=== PATIENT | female | born 1985 | race Caucasian/White ===

== ENCOUNTER 2018-04-08 20:20 | Emergency (ER) | payer OTHER ==
[~2018-04-08] VITALS: Ht 160 cm; Wt 50.0 kg
[2018-04-08 21:55] LABS: HEMATOCRIT 29.3 % (36.0-46.0); HEMOGLOBIN 9.2 G/DL (11.9-15.5); MCH 22.4 PG (29.0-34.0); MCHC 31.4 G/DL (30.0-36.0); MCV 71.5 FL (83-99); PLATELET COUNT 275 K/uL (156-360); RBC DIS.WIDTH-CV 15.4 % (11.8-14.6); RBC DIS.WIDTH-SD 39.4 % (39-53); WHITE BLOOD COUNT 7.5 K/uL (4.1-10.2)
[2018-04-08 21:58] LABS: CHLORIDE 104 mEq/L (99-109); POTASSIUM 3.5 mEq/L (3.7-5.4); SODIUM 136 mEq/L (136-147)
[2018-04-08 21:59] LABS: GLUCOSE 138 mg/dL (70-99)
[2018-04-08 22:03] LABS: CREATININE 0.7 mg/dL (0.6-1.3); GFR ESTIMATE (CALCULATED) > 59 mL/min/
[2018-04-08 22:04] LABS: UREA NITROGEN (BUN) 10 mg/dL (9-23)
[2018-04-08 22:12] LABS: QUANTITATIVE HCG < 4.0 MIU/ML
[2018-04-09 01:14] VITALS: BP 105/72
== END 2018-04-09 01:15 | disposition home or self-care (01) ==
LOC: EME 20:20
DX: S09.90XA Unspecified injury of head, initial encounter (principal); W22.09XA Striking against other stationary object, initial encounter; Y99.0 Civilian activity done for income or pay; R50.9 Fever, unspecified; D64.9 Anemia, unspecified; F17.200 Nicotine dependence, unspecified, uncomplicated
CPT/HCPCS: 70450; 71046; 80048; 81003; 84702; 85027; 99281; 99285; J1885; J7030

== ENCOUNTER 2018-04-15 13:31 | Inpatient (IN) | payer OTHER ==
[~2018-04-15] VITALS: Ht 160 cm; Wt 49.3 kg
[2018-04-15] MEDS ORDERED: GABAPENTIN300 MG PO (14:17)
[2018-04-15] MEDS ORDERED: SUBOXONE 8 MG-1 EAC2 SL (14:18)
[2018-04-15 14:58] LABS: BASOPHIL (%) 0.5 % (0-1); EOSINOPHIL (%) 0.1 % (0-5); HEMATOCRIT 30.8 % (36.0-46.0); HEMOGLOBIN 9.5 G/DL (11.9-15.5); IMMATURE GRANULOCYTE (%) 0.5 % (0.0-0.7); LYMPHOCYTE (%) 9.9 % (15-42); LYMPHOCYTE COUNT 0.7 K/uL (1.0-2.8); MCHC 30.8 G/DL (30.0-36.0); MCV 71.5 FL (83-99); MONOCYTE (%) 7.9 % (3-12); MONOCYTE COUNT 0.6 K/uL (0-0.8); NEUTROPHIL (%) 81.1 % (45-76); NEUTROPHIL COUNT 6.1 K/uL (1.8-6.4); PLATELET COUNT 269 K/uL (156-360); RBC DIS.WIDTH-CV 15.2 % (11.8-14.6); RBC DIS.WIDTH-SD 39.6 % (39-53); RED BLOOD COUNT 4.31 M/uL (3.80-5.20); WHITE BLOOD COUNT 7.5 K/uL (4.1-10.2)
[2018-04-15 15:00] LABS: ALBUMIN 3.8 g/dL (3.2-4.8)
[2018-04-15 15:01] LABS: CHLORIDE 103 mEq/L (99-109); POTASSIUM 3.9 mEq/L (3.7-5.4); SODIUM 138 mEq/L (136-147)
[2018-04-15 15:03] LABS: GLUCOSE 173 mg/dL (70-99); TOTAL PROTEIN 7.7 g/dL (6.4-8.3)
[2018-04-15 15:05] LABS: TOTAL BILIRUBIN 0.3 mg/dL (0.0-1.0)
[2018-04-15 15:07] LABS: ALKALINE PHOSPHATASE 118 IU/L (3-129); CREATININE 0.8 mg/dL (0.6-1.3); GFR ESTIMATE (CALCULATED) > 59 mL/min/
[2018-04-15 15:08] LABS: AST (GOT) 19 IU/L (2-34); UREA NITROGEN (BUN) 9 mg/dL (9-23)
[2018-04-15 15:09] LABS: ALT (GPT) 22 IU/L (3-49)
[2018-04-15 15:23] LABS: LIPASE 9 U/L (1.0-51.0)
[2018-04-15 16:36] LABS: APPEARANCE CLEAR ((CLEAR)); BILIRUBIN NEGATIVE; BLOOD NEGATIVE; COLOR STRAW ((YELLOW)); GLUCOSE (STRIP) NEGATIVE; KETONES NEGATIVE; LEUKOCYTES NEGATIVE; NITRITE NEGATIVE; PROTEIN (STRIP) NEGATIVE; SPECIFIC GRAVITY 1.003 (1.000-1.030); UCUL ADDED? NO; UROBILINOGEN 0.2 MG/DL (0.2-1.0)
[2018-04-15] MEDS ORDERED: ZUBSOLV 5.7-1.1 EACH SL (17:41)
[2018-04-15] MEDS ORDERED: SEROQUEL12.5 MG PO (17:43)
[2018-04-15] MEDS ORDERED: ENSURE113 GM PO (17:44)
[2018-04-15 17:59] VITALS: BP 126/65
[2018-04-15 20:16] VITALS: BP 103/57
[2018-04-16 00:05] VITALS: BP 118/72
[2018-04-16 03:56] VITALS: BP 95/48
[2018-04-16 06:57] LABS: HEMATOCRIT 27.2 % (36.0-46.0); HEMOGLOBIN 8.3 G/DL (11.9-15.5); MCH 21.8 PG (29.0-34.0); MCHC 30.5 G/DL (30.0-36.0); MCV 71.6 FL (83-99); PLATELET COUNT 218 K/uL (156-360); RBC DIS.WIDTH-CV 15.3 % (11.8-14.6); RBC DIS.WIDTH-SD 39.7 % (39-53); WHITE BLOOD COUNT 5.8 K/uL (4.1-10.2)
[2018-04-16 07:01] LABS: CHLORIDE 110 MEQ/L (99-109); CREATININE 0.5 MG/DL (0.6-1.3); GFR ESTIMATE (CALCULATED) > 59 mL/min/; GLUCOSE 121 mg/dL (70-99); POTASSIUM 4.2 MEQ/L (3.7-5.4); SODIUM 141 MEQ/L (136-147); UREA NITROGEN (BUN) 7 mg/dL (9-23)
[2018-04-16 07:16] LABS: ABS NEUTROPHIL COUNT 2.8; ANISOCYTOSIS 2+; BASOPHILS 2.7 %; BURR CELLS 2+; EOSINOPHIL ABS CT 0.2; EOSINOPHILS 2.6 % (0-5.0); HYPOCHROMASIA 1+; MICROCYTOSIS 2+; MYELOCYTES 0.9 %; OVALOCYTES 2+; PLAT.SUFFICIENCY ADEQUATE; POIKILOCYTOSIS 3+; SEG.NEUTROPHILS 47.8 % (46.0-76.0)
[2018-04-16 07:28] VITALS: BP 99/64
[2018-04-16 11:53] VITALS: BP 106/65
[2018-04-16 16:21] VITALS: BP 117/78
[2018-04-16 19:13] VITALS: BP 117/69
[2018-04-17 00:07] VITALS: BP 102/56
[2018-04-17 08:23] VITALS: BP 104/69
[2018-04-17] MEDS ORDERED: CIPRO500 MG PO (16:48)
== END 2018-04-17 18:18 | disposition home or self-care (01) | DRG 872 ==
LOC: EME 13:31 → EDOF 15:00 → CANRESERV 15:04 → ENRESERV 15:04 → 5SOUTH 17:52
PROVIDERS: Emergency Medicine; Nurse Practitioner Adult Health
DX: A41.52 Sepsis due to Pseudomonas (principal); F11.20 Opioid dependence, uncomplicated; D50.9 Iron deficiency anemia, unspecified; N92.0 Excessive and frequent menstruation with regular cycle; F17.210 Nicotine dependence, cigarettes, uncomplicated; Z71.51 Drug abuse counseling and surveillance of drug abuser
CPT/HCPCS: 36415; 71046; 74177; 80048; 80053; 80074; 80306 90; 81003; 82728; 83540; 83605; 83690; 84466; 85025; 85651; 86140; 86308; 86780; 87040; 87077; 87186; 87389; 87801; 93306; 99281; 99285; J0574; J0692; J7030

== ENCOUNTER 2018-04-18 23:21 | Emergency (ER) | payer OTHER ==
[~2018-04-18] VITALS: Ht 160 cm; Wt 49.7 kg
[~2018-04-18 23:21] MED LIST: CIPRO500 MG PO; ENSURE113 GM PO; GABAPENTIN300 MG PO; SEROQUEL12.5 MG PO; SUBOXONE 8 MG-1 EAC2 SL; ZUBSOLV 5.7-1.1 EACH SL
[2018-04-19 00:13] LABS: CHLORIDE 105 mEq/L (99-109)
[2018-04-19 00:14] LABS: POTASSIUM 4.9 mEq/L (3.7-5.4); SODIUM 141 mEq/L (136-147)
[2018-04-19 00:17] LABS: HEMATOCRIT 30.2 % (36.0-46.0); HEMOGLOBIN 9.5 G/DL (11.9-15.5); MCH 22.4 PG (29.0-34.0); MCHC 31.5 G/DL (30.0-36.0); MCV 71.1 FL (83-99); PLATELET COUNT 343 K/uL (156-360); RBC DIS.WIDTH-CV 15.1 % (11.8-14.6); RBC DIS.WIDTH-SD 38.2 % (39-53); RED BLOOD COUNT 4.25 M/uL (3.80-5.20); WHITE BLOOD COUNT 6.9 K/uL (4.1-10.2)
[2018-04-19 00:28] LABS: TROP-I INTERPRETATION NEGATIVE; TROPONIN-I < 0.01 ng/mL (0.0-0.30)
[2018-04-19 00:40] LABS: ALBUMIN 3.4 g/dL (3.2-4.8)
[2018-04-19 00:43] LABS: GLUCOSE 101 mg/dL (70-99)
[2018-04-19 00:46] LABS: ALKALINE PHOSPHATASE 103 IU/L (3-129); CREATININE 0.7 mg/dL (0.6-1.3); GFR ESTIMATE (CALCULATED) > 59 mL/min/
[2018-04-19 00:47] LABS: TOTAL BILIRUBIN 0.2 mg/dL (0.0-1.0); UREA NITROGEN (BUN) 17 mg/dL (9-23)
[2018-04-19 00:49] LABS: ALT (GPT) 22 IU/L (3-49)
[2018-04-19 00:52] LABS: AST (GOT) 28 IU/L (2-34)
[2018-04-19 01:27] LABS: APPEARANCE CLOUDY ((CLEAR)); BILIRUBIN NEGATIVE; BLOOD NEGATIVE; COLOR YELLOW ((YELLOW)); GLUCOSE (STRIP) NEGATIVE; KETONES NEGATIVE; LEUKOCYTES NEGATIVE; NITRITE NEGATIVE; PROTEIN (STRIP) 30; SPECIFIC GRAVITY 1.021 (1.000-1.030); UROBILINOGEN 0.2 MG/DL (0.2-1.0)
[2018-04-19 01:36] LABS: BACTERIA RARE /HPF; EPITHELIAL CELLS 2+ /HPF; MUCUS TRACE /LPF; RED BLOOD CELLS 0-5 /HPF (0-5); UCUL ADDED? YES
[2018-04-19 02:10] LABS: LIPASE 19 U/L (1.0-51.0)
[2018-04-19 02:12] VITALS: BP 102/76
== END 2018-04-19 02:15 | disposition home or self-care (01) ==
LOC: EME → EDBD 23:21 → EME 23:21
PROVIDERS: Emergency Medicine
DX: R55 Syncope and collapse (principal); D64.9 Anemia, unspecified; F17.200 Nicotine dependence, unspecified, uncomplicated
CPT/HCPCS: 71045; 80053; 81003; 83690; 84484; 85027; 87086; 93005; 99281; 99285; J7030